=== PATIENT | female | born 1970 | race Caucasian/White ===

== ENCOUNTER 2017-07-30 14:25 | Emergency (ER) | payer OTHER ==
[~2017-07-30] VITALS: Ht 154.9 cm; Wt 81.6 kg
[2017-07-30 14:28] VITALS: BP 147/95
[2017-07-30] MEDS ORDERED: DEXAMETHASONE 4 MG/ML, 1ML PO ONE (15:00)
[2017-07-30] MEDS ORDERED: DEXAMETHASONE 4 MG/ML, 5ML ONE (15:01)
== END 2017-07-30 15:17 | disposition home or self-care (01) ==
LOC: ED 15:11
DX: J02.0 Streptococcal pharyngitis (principal); J45.909 Unspecified asthma, uncomplicated
CPT/HCPCS: 99283; J1100

== ENCOUNTER 2018-03-06 19:45 | Emergency (ER) | payer SELFPAY ==
[~2018-03-06] VITALS: Ht 154.9 cm; Wt 87.5 kg
[2018-03-06 19:47] VITALS: BP 161/95
[2018-03-06] MEDS ORDERED: ALBUTEROL/IPRATROPIUM 2.5MG/0.5MG, 3 ML ONE (20:26)
[2018-03-06] MEDS ORDERED: ALBUTEROL/IPRATROPIUM 2.5MG/0.5MG, 3 ML NPPB SCH (20:30)
== END 2018-03-06 21:13 | disposition home or self-care (01) ==
LOC: ED 21:01
DX: J45.31 Mild persistent asthma with (acute) exacerbation (principal); I10 Essential (primary) hypertension; Z91.14 Patient's other noncompliance with medication regimen
CPT/HCPCS: 71046; 93005; 99284; J7512; J7620